=== PATIENT | female | born 1995 | race African-American/Black ===

== ENCOUNTER 2022-11-20 20:01 | Emergency (ER) | payer OTHER ==
[~2022-11-20] VITALS: Ht 170.2 cm; Wt 78.0 kg
[2022-11-20 20:11] VITALS: O2SAT 99
[2022-11-20] MEDS ORDERED: ACETAMINOPHEN 325MG TABLET PO ONE (21:30)
[2022-11-20] MEDS ORDERED: ONDANSETRON 4MG ODT PO ONE (21:30)
[2022-11-20 21:48] LABS: CHLORIDE 103 mEq/L (98-107); INDEX HEMOLYSI 1 (1-3); INDEX ICTERIC 1 (1-4); INDEX LIPEMIC 1 (1-3); POTASSIUM 2.9 mEq/L (3.5-5.1); SODIUM 135 mEq/L (136-145)
[2022-11-20 22:00] LABS: ALANINE AMINOTRANSFERASE 21 IU/L (13-61); ALBUMIN 4.3 g/dL (3.4-5.0); ASPARTATE AMINOTRANSFERASE 19 IU/L (15-37); BILIRUBIN TOTAL 0.6 mg/dL (0.1-1.0); CALCIUM 8.9 mg/dL (8.5-10.1); CARBON DIOXIDE 25 mEq/L (21-32); GLUCOSE 94 mg/dL (70-105); PROTEIN TOTAL 8.3 g/dL (6.0-8.3); TROPONIN I HIGH SENSITIVITY 4 ng/L (<54); UREA NITROGEN BLOOD 6 mg/dL (7-21)
[2022-11-20] MEDS ORDERED: SODIUM CHLORIDE 0.9% 1,000 ML IV ONE (22:00)
[2022-11-20] MEDS ORDERED: POTASSIUM CHLORIDE 20MEQ TABLET SR PO ONE (22:00)
[2022-11-20 22:04] LABS: HCG SCREEN NEGATIVE
[2022-11-20] MEDS ORDERED: KCL 10MEQ/50ML PREMIX 50 ML IV SCH (22:30)
[2022-11-20 22:47] LABS: BASOPHILS % 0.3 % (0.0-2.0); EOSINOPHILS % 0.1 % (0.0-5.0); HEMATOCRIT. 40.9 % (36.0-48.0); HEMOGLOBIN. 14.2 g/dL (12.0-16.0); LYMPHOCYTES % 7.8 % (20.0-50.0); MEAN CORPUSCULAR HEMOGLOBIN 31.2 pg (28.0-32.0); MEAN CORPUSCULAR HGB CONC 34.7 g/dL (31.0-37.0); MEAN CORPUSCULAR VOLUME 89.8 fL (81.0-99.0); MEAN PLATELET VOLUME 9.7 fl (7.4-10.4); MONOCYTES % 6.4 % (2.0-8.0); NEUTROPHILS % 85.4 % (40.0-76.0); PLATELET 155 x1000/uL (130-400); RED BLOOD CELL COUNT 4.55 mill/uL (4.2-5.4); RED CELL DISTRIBUTION WIDTH 12.6 % (11.6-14.6); WHITE BLOOD COUNT 10.6 x1000/uL (4.5-11.0)
[2022-11-21] MEDS ORDERED: ONDA4TAB11 PO (01:05)
[2022-11-21 01:55] VITALS: BP 112/68; PULSE 87; RESP 20; TEMP 98.1
== END 2022-11-21 01:59 | disposition home or self-care (01) ==
LOC: ER 20:01
DX: B34.9 Viral infection, unspecified (principal); E86.0 Dehydration; E87.6 Hypokalemia; R55 Syncope and collapse; Z20.822 Contact with and (suspected) exposure to COVID-19
CPT/HCPCS: 80053; 84703; 83605; 85025; 84484; 36415; 71045; 93005; 96361; 96365; 99285; 87804 ×2; 87426; Q0162; J3480; J7030; C9803; Z7610